=== PATIENT | male | born 1965 | race Caucasian/White ===

== ENCOUNTER 2018-07-27 20:24 | Emergency (ER) | payer SELFPAY ==
[~2018-07-27] VITALS: Ht 172.7 cm; Wt 77.0 kg
[~2018-07-27 20:24] MED LIST: AMIODARONE HCL 50MG/ML 3ML VIAL IV ONE; DEXTROSE 50% WATER 50ML SYRINGE IV ONE; EPINEPHRINE 0.1MG/ML (1:10,000) 10ML SYR ONE; LIDOCAINE HCL 2% 5ML SYRINGE IV ONE; SODIUM BICARBONATE 7.5% 0.9 MEQ/ML 50ML SYR IV ONE
[2018-07-27 20:27] VITALS: BP 0/0
[2018-07-27] MEDS ORDERED: EPINEPHRINE 0.1MG/ML (1:10,000) 10ML SYR ONE (20:38)
== END 2018-07-28 01:23 | disposition expired ==
LOC: ER 20:40
DX: I46.9 Cardiac arrest, cause unspecified (principal); F10.20 Alcohol dependence, uncomplicated; Y90.9 Presence of alcohol in blood, level not specified; F17.210 Nicotine dependence, cigarettes, uncomplicated; Z87.11 Personal history of peptic ulcer disease
CPT/HCPCS: 92950; 99285; J0282; J3490